=== PATIENT | female | born 1970 | race Caucasian/White ===

== ENCOUNTER → 2018-07-31 15:22 | Outpatient (CLI) | payer MEDICAID, SELFPAY ==
[2018-07-31 17:58] LABS: Absolute Lymphocyte Count 1.97 X10^3/ul (0.83-4.51); Absolute Neutrophil Count 4.5 X10^3/uL (2.0-7.7); Basophil# 0.01 X10^3/uL; Basophil% 0.1 % (0-1); Eosinophils% 1.5 % (0-5); Hematocrit 42.7 % (37-47); Hemoglobin 14.1 g/dl (12.0-15.0); Lymphocyte # 1.97 X10^3/ul (4.0); Lymphocyte % 28.7 % (19-41); Mean Corpuscular Hgb 29.6 pg (27.0-32.0); Mean Corpuscular Volume 89.5 fL (81-99); Mean Platelet Vol. 10.1 fl (6.2-12.0); Monocyte% 4.4 % (0-10); Neutrophil # 4.47 X10^3/uL (2.7-7.7); Platelet Count 294 K/mm3 (150-450); RBC Distribution Width CV 13.9 % (11.6-14.6); Red Blood Count 4.77 M/mm3 (4.2-5.4); White Blood Count 6.9 K/mm3 (4.4-11.0)
[2018-07-31 17:59] LABS: POSITIVE COUNT NO; POSITIVE DIFFERENTIAL NO; POSITIVE MORPHOLOGY NO
[2018-07-31 18:10] LABS: ALB/GLOB Ratio 0.8 RATIO (0.9-2.4); AST(SGOT) 21 U/L (15-37); Alanine Aminotransfer ALT/SGPT 24 U/L (13-56); Albumin, Serum 3.4 g/dL (3.2-5.0); Alkaline Phosphatase 71 U/L (45-117); Anion Gap 9 (5-15); BUN 16 mg/dL (7-18); BUN/Creat Ratio 17.5 RATIO (10-20); Calcium,Total 8.9 mg/dL (8.5-10.1); Chloride 106 mmol/L (98-107); Creatinine, Serum 0.91 mg/dL (0.55-1.02); EST Glomerular Filtration Rate 70 mL/min (>60); Est Glom Filt Rate - Afr Amer 84 mL/min (>60); Ferritin 21 ng/mL (8-252); Globulin 4.2 g/dL (2.2-4.2); Glucose 66 mg/dL (74-106); Potassium 3.7 mmol/L (3.5-5.1); Protein, Total 7.6 g/dL (6.4-8.2); Sodium Level 140 mmol/L (136-145)
[2018-07-31 18:22] LABS: Hemoglobin A1c 5.2 % (4.2-6.3)
--- OUTSIDE RECORDS SUMMARY | 2018-11-04 06:25 | XMS RPT_ITS ---
:1970 Author Organization OHIP Care Team Providers Name Role Phone MANNY KU Referring Unavailable MATY LIMA (RN ENDOCRINOLOGY) Attending Unavailable MANNY KU Referring Unavailable MANNY KU Attending Unavailable MATY LIMA (RN ENDOCRINOLOGY) Referring Unavailable JASPREET CARRIZALES Attending Unavailable Orlando Corrigan Attending Unavailable Orlando Corrigan Referring Unavailable Orlando Corrigan Primary Care Unavailable PROBLEMS PROBLEMS DATE TYPE CONDITION / CODE ATTENDING STATUS SOURCE 09/12/2017 Active Unknown / MATY LIMA Active [facility] UNK(Unknown) (RN ENDOCRINOLOGY) [facility] [place] Repository 09/12/2017 Active Encounter for NA Active [facility] screening [facility] [place] mammogram for Repository malignant neoplasm of breast / Z12.31(ICD-10) PROCEDURES PROCEDURES No Procedure Records FoundRESULTS RESULTS CBC W/DIFF, AUTOMATED Collected: 07/31/2018 Status: F Source: [place] 3:28 PM [facility] REPOSITORY TYPE CODE TESTS RESULT OUT OF RANGE REFERENCE UNITS LAB L100.1000 4.4-11.0 K/mm3 Normal WBC 6.9 LAB L100.1200 4.2-5.4 M/mm3 Normal RBC 4.77 LAB L100.1300 12.0-15.0 g/dl Normal HGB 14.1 LAB L100.1400 37-47 % Normal HCT 42.7 LAB L100.1500 81-99 fL Normal MCV 89.5 LAB L100.1600 27.0-32.0 pg Normal MCH 29.6 LAB L100.1700 32-36 g/gl Normal MCHC 33.0 LAB L100.1810 11.6-14.6 % Normal RDW CV 13.9 LAB L100.1820 35.1-43.9 fl High RDW SD 46.0 LAB L100.1900 150-450 K/mm3 Normal PLT 294 LAB L100.2000 6.2-12.0 fl Normal MPV 10.1 LAB L100.2100 47-70 % Normal NEUT% 65.0 LAB L100.2200 19-41 % Normal LY% 28.7 LAB L100.2300 0-10 % Normal MONO% 4.4 LAB L100.2400 0-5 % Normal EO% 1.5 LAB L100.2500 0-1 % Normal BASO% 0.1 LAB L100.2550 0.0-0.9 % Normal IM GRAN % 0.300 Result Comment: IG% - Immature Granulocytes (promyelocytes, myelocytes and metamyelocytes) > 1% indicates that a LEFT SHIFT is Present. LAB L100.2620 2.0-7.7 X10 3/uL Normal Absolute Neut 4.5 LAB L100.2720 0.83-4.51 X10 3/ul Normal Absolute Lymph 1.97 Performed By: #### L100.0100, L500.4050, L501.9520, L503.6550, L501.9985 #### [facility] [address] [place], [place], [address] COMPREHENSIVE METABOLIC Collected: 07/31/2018 Status: F Source: [facility] 3:28 PM [facility] REPOSITORY TYPE CODE TESTS RESULT OUT OF RANGE REFERENCE UNITS LAB L501.0100 74-106 mg/dL Low GLU 66 Result Comment: Please note revised GLUCOSE reference range effective 2017. LAB L501.1000 7-18 mg/dL Normal BUN 16 LAB L501.1100 0.55-1.02 mg/dL Normal CREAT,SERUM 0.91 Result Comment: The validity of the calculated GFR AND GFRAA in patients over 70 years has not been determined. Clinical correlation is essential. LAB L501.1110 >60 mL/min Normal EST GFR 70 Result Comment: Non- GFR Calc LAB L501.1115 >60 mL/min Normal EST GFR - AA 84 Result Comment: GFR Calc LAB L501.1300 10-20 RATIO Normal BUN/CRE 17.5 LAB L501.1500 6.4-8.2 g/dL T Normal PROT 7.6 LAB L501.1800 3.2-5.0 g/dL Normal ALB 3.4 LAB L501.1950 2.2-4.2 g/dL Normal GLOB 4.2 LAB L501.2000 0.9-2.4 RATIO Low A/G 0.8 LAB L501.2200 8.5-10.1 mg/dL CA Normal 8.9 LAB L501.4100 15-37 U/L Normal AST 21 Result Comment: Slight Hemolysis, Result may be falsely increased. LAB L501.4305 45-117 U/L Normal ALK P 71 LAB L501.4405 13-56 U/L Normal ALT 24 LAB L501.4600 0.20-1.00 mg/dL Normal T BILI 0.30 LAB L501.5300 136-145 mmol/L Normal NA 140 LAB L501.5600 3.5-5.1 mmol/L Normal K 3.7 Result Comment: Slight Hemolysis, Result may be falsely increased. LAB L501.5900 98-107 mmol/L Normal CL 106 LAB L501.6100 21.0-32.0 mmol/L Normal CO2 25.0 LAB L501.6200 5-15 Normal 9 GAP Performed By: #### L100.0100, L500.4050, L501.9520, L503.6550, L501.9985 #### [facility] [address] [place] [address], [address] THYROID STIM HORMONE Collected: 07/31/2018 Status: F Source: [place] (T[facility]) 3:28 PM [facility] REPOSITORY TYPE CODE TESTS RESULT OUT OF RANGE REFERENCE UNITS LAB L501.9520 0.358-3.74 uIU/mL Normal TSH 1.50 Performed By: #### L100.0100, L500.4050, L501.9520, L503.6550, L501.9985 #### [facility] [address] [place], [place], [id number] FERRITIN Collected: 07/31/2018 Status: F Source: [place] 3:28 PM [facility] REPOSITORY TYPE CODE TESTS RESULT OUT OF RANGE REFERENCE UNITS LAB L503.6550 8-252 ng/mL Normal FERRITIN 21 Performed By: #### L100.0100, L500.4050, L501.9520, L503.6550, L501.9985 #### [facility] [address] [place], [address] HEMOGLOBIN A1C Collected: 07/31/2018 Status: F Source: [place] 3:28 PM [facility] REPOSITORY TYPE CODE TESTS RESULT OUT OF RANGE REFERENCE UNITS LAB L501.9985 4.2-6.3 % Normal HGB A1C 5.2 Performed By: #### L100.0100, L500.4050, L501.9520, L503.6550, L501.9985 #### [facility] [address] [facility] [place], [address] SURGICAL PATHOLOGY Observed: 10/31/2017 Status: F Source: [place] 4:18 PM [facility] REPOSITORY Specimen originated from [facility] Specimen #: [id number] Submitting Physician: JASPREET CARRIZALES M.D. ([id number]) FINAL DIAGNOSIS Endometrium, biopsy - Inactive/weakly secretory endometrial glands associated with stromal progestin effect, consistent with oral contraceptive effect. CB/rw 11/07/2017 Malik Gamboa M.D. (Electronic Signature) SPECIMEN SUBMITTED A: ENDOMETRIAL, BIOPSY CLINICAL DATA irreg menstrual bleeding, on OCPs GROSS DESCRIPTION A. Received in formalin are multiple hayes to red-brown, soft feathery segments of tissue admixed with gelatinous material aggregating to 2.5 x 1.5 x 0.3 cm. Totally submitted in one cassette. Gross examination performed at [facility], [address] [place] [address] 11/04/2017 2:38:51 AM Date of Report: 11/07/2017 Date of Procedure: 10/31/2017 Date of Receipt: 11/03/2017 Submitted by: JASPREET CARRIZALES M.D. ([id number]) Location: [facility] Diagnostic interpretation performed at [facility], [address] [place] [address]. PROGRESS Observed: 10/31/2017 Status: COMPLETED Source: [place] 3:42 PM [facility] REPOSITORY HNO ID: [id number] Author: Jaspreet Carrizales Service: (none) Author Type: Physician Type: Progress Notes Filed: 10/31/2017 4:19 PM Note Text: Radha Knight is a 47 year old female who presents today for a colposcopy. Her last pap smear was ASCUS w/ neg hrhpv from 2017, 2016 normal pap w/ +HRHPV from 2015. Patient has a history of abnormal pap: Yes. She has had prior treatment: none. Irreg. spotting on OCPs but not very bothersome. Uses OCPs for contraception test: negative UNIVERSAL PROTOCOL / SAFETY CHECKLIST Procedure to be performed: Colposcopy w/ possible biopsy and Endometrial biopsy Sign in Communication: Completed Time Out: Team Confirms the Correct Patient, Correct Procedure, Correct Site and Site Marking, Correct Position (if applicable), Prep and Dry Time (if applicable). Time: 1608 Affirmation of Time Out: YES Sign Out Discussion: Completed Jaspreet Carrizales MD PROCEDURE: EXTERNAL GENITALIA: Normal in appearance without lesions VAGINA: Normal in appearance without lesions CERVIX: Speculum placed in vagina and excellent visualization of cervix achieved. Cervix swabbed x 3 with 3% acetic acid solution. Cervix grossly normal. Squamocolumnar junction visualized. No acetowhite changes, punctations, mosaicism or atypical vasculature noted. BIOPSY: Not done. ECC: not done EMB done, dilators used. Pipelle placed, sounded to 8 cm. Vigorous pass made with minimal tissue returned HEMOSTASIS: yes Procedure Summary: Patient tolerated procedure well and colposcopy was adequate. ASSESSMENT: Endometrial cells on pap, ASCUS pap, irreg bleeding PLAN: Specimens labeled and sent to Pathology. Will notify patient of results in 1-2 weeks. Post-procedure instructions reviewed and written material given to the patient. No need for ablation, uses OCPS for contraception. Will try nuvaring to see if decreases unscheduled bleeding. DANDC if abnormality on EMB. She agrees w/ plan Jaspreet Carrizales MD HISTORY PHYSICAL Observed: 10/31/2017 Status: COMPLETED Source: [place] 3:03 PM [facility] REPOSITORY HNO ID: [id number] Author: Bisi Perez Ma Service: (none) Author Type: (none) Type: HANDP Filed: 10/31/2017 4:19 PM Note Text: . CNOV Observed: 10/31/2017 Status: COMPLETED Source: [place] 3:00 PM [facility] REPOSITORY Office Visit (WOOB) RADHA KNIGHT ([id number]) 1970 F Date Time Provider Department 10/31/17 3:00 PM JASPREET CARRIZALES During your visit today, we recorded the following information about you: Pulse Respiration Blood pressure Weight 72/minute 12/minute 120/78 112 kg Height Last Period 1.575 m 10/13/17 Bisi Perez Ma 10/31/2017 4:19 PM Signed . Jaspreet Carrizales MD 10/31/2017 4:19 PM Signed Radhadina Knight is a 47 year old female who presents today for a colposcopy. Her last pap smear was ASCUS w/ neg hrhpv from 2018, 2016 normal pap w/ +HRHPV from 2016. Patient has a history of abnormal pap: Yes. She has had prior treatment: none. Irreg. spotting on OCPs but not very bothersome. Uses OCPs for contraception test: negative UNIVERSAL PROTOCOL / SAFETY CHECKLIST Procedure to be performed: Colposcopy w/ possible biopsy and Endometrial biopsy Sign in Communication: Completed Time Out: Team Confirms the Correct Patient, Correct Procedure, Correct Site and Site Marking, Correct Position (if applicable), Prep and Dry Time (if applicable). Time: 1608 Affirmation of Time Out: YES Sign Out Discussion: Completed Jaspreet Carrizales MD PROCEDURE: EXTERNAL GENITALIA: Normal in appearance without lesions VAGINA: Normal in appearance without lesions CERVIX: Speculum placed in vagina and excellent visualization of cervix achieved. Cervix swabbed x 3 with 3% acetic acid solution. Cervix grossly normal. Squamocolumnar junction visualized. No acetowhite changes, punctations, mosaicism or atypical vasculature noted. BIOPSY: Not done. ECC: not done EMB done, dilators used. Pipelle placed, sounded to 8 cm. Vigorous pass made with minimal tissue returned HEMOSTASIS: yes Procedure Summary: Patient tolerated procedure well and colposcopy was adequate. ASSESSMENT: Endometrial cells on pap, ASCUS pap, irreg bleeding PLAN: Specimens labeled and sent to Pathology. Will notify patient of results in 1-2 weeks. Post-procedure instructions reviewed and written material given to the patient. No need for ablation, uses OCPS for contraception. Will try nuvaring to see if decreases unscheduled bleeding. DANDamp;C if abnormality on EMB. She agrees w/ plan MD Bisi Hidalgo [facility] 10/31/2017 3:43 PM Signed YOUR RECOVERY It may take a few weeks for your cervix to heal. While your cervix heals, you may have: - Vaginal bleeding (less than a normal menstrual period) - Mild cramping - A brown-black vaginal discharge (similar to coffee grounds) which is a result of the paste used to help stop bleeding from the procedure Do NOT put anything in the vagina for 1 week after your colposcopy if your doctor does a biopsy of your cervix. This includes sex, tampons, and douches. If you have any discomfort, you may take an over the counter pain medication (motrin, advil, ibuprofen, tylenol, etc). If this does not relieve your discomfort, contact your doctor's office for a prescription strength pain medication. It is okay to wear a sanitary pad until the discharge and spotting stops. RISKS Although problems seldom occur with colposcopy, there can be some complications. You may feel faint during and shortly after the procedure as well as have some bleeding and vaginal discharge after the procedure. There is also a risk of infection after the procedure. These complications are rare and can be easily treated. You should contact you doctor is you have any of the following: - Heavy bleeding (more than your normal period) - Bleeding with clots - Severe abdominal pain - Fever (more than 100.4F) - Foul smelling vaginal discharge RESULTS If a biopsy was taken, we will have the results of your biopsy in 1-2 weeks. If you do not hear the results of your biopsy after 2 weeks, please contact your physicians office for the results. Depending on the biopsy results, your doctor will determine your follow up plan which may include further testing or treatments. STAYING HEALTHY After the procedure, you will need to see your doctor for follow up visits during the year. At these visits your doctor will check the health of your cervix with a pap smear. After three normal pap smears, your doctor will allow you to return to having exams once a year. If you have another abnormal pap smear, you may need closer follow up for longer or you may need additional treatment. By making a few lifestyle changes after the procedure, you can help protect the health of your cervix: - Have regular pelvic exams and pap smears as ordered by your doctor. - Stop smoking as smoking increases your risk of developing a cancer of the cervix - If you have more than one sexual partner, limit your number of partners and use condoms to reduce your risks of STDs. If you have any additional questions, please contact your doctor's office. YOUR RECOVERY After your biopsy you may have: - Vaginal bleeding (less than a normal menstrual period) - Mild cramping Do NOT put anything in the vagina for 1 week after your endometrial biopsy. This includes sex, tampons, and douches. If you have any discomfort, you may take an over the counter pain medication (motrin, advil, ibuprofen, tylenol, etc). If this does not relieve your discomfort, contact your doctor's office for a prescription strength pain medication. It is okay to wear a sanitary pad until the discharge and spotting stops. RISKS Although problems seldom occur with endometrial biopsies, there can be some complications. You may feel faint during and shortly after the procedure as well as have some bleeding after the procedure. There is also a risk of infection after the procedure. These complications are rare and can be easily treated. You should contact you doctor is you have any of the following: - Heavy bleeding (more than your normal period) - Bleeding with clots - Severe abdominal pain - Fever (more than 100.4F) - Foul smelling vaginal discharge RESULTS We will have the results of your biopsy in 1-2 weeks. If you do not hear the results of your biopsy after 2 weeks, please contact your physicians office for the results. If you have any additional questions, please contact your doctor's office. Bisi Perez Ma 10/31/2017 4:42 PM Signed Addended by: BISI PEREZ MA on: 10/31/2017 04:42 PM Modules accepted: Orders Referring Provider: SELF [200] Allergies As of Date: 10/31/2017 (No Known Allergies) Date Reviewed: 10/31/2017 Reviewed by: Jaspreet Carrizales - Fully Assessed Reason for Visit: Pre-Op Visit [1235] Primary Visit Diagnosis:Irregular intermenstrual bleeding [N92.1] Other Visit Diagnoses:Atypical squamous cells of undetermined significance (ASCUS) on Papanicolaou smear of cervix [R87.610] Endometrial cells on cervical Pap smear inconsistent w/LMP [R87.619] Order(s):ENDOMETRIAL BIOPSY [7673680] Order #: [id number] SURGICAL PATHOLOGY [[id number]] Order #: [id number] COLPOSCOPY [[id number]] Order #: [id number] HCG QUAL UR B/O [[id number]] Order #: [id number] Prescriptions as of 10/31/2017 Sig: AMITRIPTYLINE 25 MG TABLET ASHLYNA 0.15 MG-30 MCG (84)/1* MAGNESIUM OXIDE 400 MG TABLET BUPROPION XL 300 MG 24 HR TAB Take 300 mg by mouth once jabari* ETONOGESTREL-ETHINYL ESTRADIO* Use 1 Each vaginally as direc* Medication notes this encounter AMITRIPTYLINE 25 MG TABLET >> Bisi Perez Ma 10/31/2017 3:02 PM >> BISI PEREZ MA FriOct 31, 2017 3:02 PM Received from: External Pharmacy ASHLYNA 0.15 MG-30 MCG (84)/10 MCG(7) TABLETS,3 MONTH DOSE PACK >> Bisi Perez Ma 10/31/2017 3:02 PM >> BISI PEREZ MA FriOct 31, 2017 3:02 PM Received from: External Pharmacy Problem List As Of Date 10/31/2017 Noted Resolved Cholelithiasis [K80.20] INVALID FOR* Other instructions from your clinician: YOUR RECOVERY It may take a few weeks for your cervix to heal. While your cervix heals, you may have: - Vaginal bleeding (less than a normal menstrual period) - Mild cramping - A brown-black vaginal discharge (similar to coffee grounds) which is a result of the paste used to help stop bleeding from the procedure Do NOT put anything in the vagina for 1 week after your colposcopy if your doctor does a biopsy of your cervix. This includes sex, tampons, and douches. If you have any discomfort, you may take an over the counter pain medication (motrin, advil, ibuprofen, tylenol, etc). If this does not relieve your discomfort, contact your doctor's office for a prescription strength pain medication. It is okay to wear a sanitary pad until the discharge and spotting stops. RISKS Although problems seldom occur with colposcopy, there can be some complications. You may feel faint during and shortly after the procedure as well as have some bleeding and vaginal discharge after the procedure. There is also a risk of infection after the procedure. These complications are rare and can be easily treated. You should contact you doctor is you have any of the following: - Heavy bleeding (more than your normal period) - Bleeding with clots - Severe abdominal pain - Fever (more than 100.4F) - Foul smelling vaginal discharge RESULTS If a biopsy was taken, we will have the results of your biopsy in 1-2 weeks. If you do not hear the results of your biopsy after 2 weeks, please contact your physicians office for the results. Depending on the biopsy results, your doctor will determine your follow up plan which may include further testing or treatments. STAYING HEALTHY After the procedure, you will need to see your doctor for follow up visits during the year. At these visits your doctor will check the health of your cervix with a pap smear. After three normal pap smears, your doctor will allow you to return to having exams once a year. If you have another abnormal pap smear, you may need closer follow up for longer or you may need additional treatment. By making a few lifestyle changes after the procedure, you can help protect the health of your cervix: - Have regular pelvic exams and pap smears as ordered by your doctor. - Stop smoking as smoking increases your risk of developing a cancer of the cervix - If you have more than one sexual partner, limit your number of partners and use condoms to reduce your risks of STDs. If you have any additional questions, please contact your doctor's office. YOUR RECOVERY After your biopsy you may have: - Vaginal bleeding (less than a normal menstrual period) - Mild cramping Do NOT put anything in the vagina for 1 week after your endometrial biopsy. This includes sex, tampons, and douches. If you have any discomfort, you may take an over the counter pain medication (motrin, advil, ibuprofen, tylenol, etc). If this does not relieve your discomfort, contact your doctor's office for a prescription strength pain medication. It is okay to wear a sanitary pad until the discharge and spotting stops. RISKS Although problems seldom occur with endometrial biopsies, there can be some complications. You may feel faint during and shortly after the procedure as well as have some bleeding after the procedure. There is also a risk of infection after the procedure. These complications are rare and can be easily treated. You should contact you doctor is you have any of the following: - Heavy bleeding (more than your normal period) - Bleeding with clots - Severe abdominal pain - Fever (more than 100.4F) - Foul smelling vaginal discharge RESULTS We will have the results of your biopsy in 1-2 weeks. If you do not hear the results of your biopsy after 2 weeks, please contact your physicians office for the results. If you have any additional questions, please contact your doctor's office. Encounter Status:Closed by JASPREET CARRIZALES MD on 10/31/17 CNCO Observed: 10/21/2017 Status: COMPLETED Source: [place] 12:00 AM [facility] [place] REPOSITORY Letter Text Jaspreet Carrizales M.D. [facility] [address] [place] [phone] 10/21/2017 Radha Knight [address] [place], [place] [id number] CC#: [id number] Dear Radha, This letter is to confirm with you the dates and times of your upcoming surgery. You should have received a telephone call notifying you of this information. Surgery is scheduled on 11/20/17 at [facility]. Pre-operative appointment at Dr. Carrizales's office is scheduled on 10/31/17 @ 3:00 p.m. [facility] will call you for pre-admission testing on 11/14/17 @ 3:00 p.m. 4 week follow-up appointment at Dr. Carrizales's office is scheduled on 12/19/17 @ 2:50 p.m. In addition, we will do a precertification approximately 1 week prior to your surgery. This means we will give your insurance company the medical information they need to make a predetermination. This is not a guarantee of payment and you will need to call your insurance company to verify benefits and coverage. If you are self-pay and/or receive [facility] Financial Assistance, and are having surgery at [facility], please call them at [phone] to make financial arrangements. We will only call you if there is a problem. If you have any questions, please feel free to call us at the phone number above. We appreciate your confidence in choosing the [facility] for your medical care and we look forward to seeing you at your next appointment. Thank you, [facility] HPV W/GENOTYPE Collected: 09/12/2017 Status: F Source: [place] 3:31 PM [facility] REPOSITORY TYPE CODE TESTS RESULT OUT OF REFERENCE UNITS RANGE LAB HPVT16 HPV HighRisk Negative for Type 16 HPV DNA high risk type 16 by PCR. LAB HPVT18 HPV HighRisk Negative for Type 18 HPV DNA high risk type 18 by PCR. LAB HPVHRO HPV HighRisk Negative for Other HPV DNA high risk types: 31,33,35,39,45 ,51,52,56,58,5 9,66,68 by PCR. Result Comment: This test was developed and its performance characteristics determined by [facility]'s [facility] [place] [facility]). It has not been cleared or approved by the FDA. -[facility] is regulated under CLIA as qualified to perform high-complexity testing. This test is used for clinical purposes. It should not be regarded as inv estigational or for research. Performed By: #### HPVHRR #### [facility] [address] [place], [place] [address] CYTOLOGY Observed: 09/12/2017 Status: C Source: [place] 3:31 PM [facility] REPOSITORY ADDITIONAL PROCEDURES PRESENT ---Abnormal Pap Test - Epithelial Cell Abnormality--- Specimen originated from [facility] Specimen #: [id number] Submitting Physician: MATY LIMA CNP SPECIMEN SUBMITTED A: CERVICAL, DIAGNOSTIC, FLUID FINAL DIAGNOSIS A. CERVICAL, DIAGNOSTIC, FLUID Satisfactory for interpretation. Epithelial cell abnormality. Atypical squamous cells of undetermined significance (ASC-US). Predominance of coccobacilli consistent with shift in vaginal sree. Endometrial cells present (see comment). COMMENT Endometrial cells in women 45 years or older may be associated with benign endometrium, hormonal alterations and less commonly, endometrial or uterine abnormalities. Endometrial evaluation is recommended in postmenopausal women. This specimen has been analyzed by the ThinPrep Imaging System, an automated imaging and review system, which assists the laboratory in evaluating cells on ThinPrep Pap tests. Following automated imaging, selected oliver from every slide are reviewed by a supervisor home economics. Jose D Sarah M.D. (Electronic Signature) ADDITIONAL PROCEDURE(S) HUMAN PAPILLOMA VIRUS Date Ordered: 09/16/2017 Date Reported: 09/17/2017 Procedure Results and Interpretation Negative for HPV DNA high risk type 16 by PCR. Negative for HPV DNA high risk type 18 by PCR. Negative for HPV DNA high risk types: 31,33,35,39,45,51,52,56,58,59,66,68 by PCR. This test was developed and its performance characteristics determined by [facility]'s [facility] [place] ([facility] It has not been cleared or approved by the FDA. [facility] is regulated under CLIA as qualified to perform high-complexity testing. This test is used for clinical purposes. It should not be regarded as investigational or for research. CLINICAL DATA HPV POS, HPV Testing: Yes, automatic HPV patients over 30 Date of Last Menstrual Period: 08/26/2017 STAINS A: CERVICAL, DIAGNOSTIC, FLUID THIN PREP CONTRACT ADMINISTRATION SPECIALIST Date of Report: 09/24/2017 Date of Procedure: 09/12/2017 Date of Receipt: 09/16/2017 Submitted by: MATY LIMA CNP Location: [facility] Diagnostic interpretation performed at [facility], [address] [place] [address]. The Pap Smear is a screening test for cervical cancer. False negative results occur with all screening tests, emphasizing the need for rescreening at recommended intervals, and clinical correlation. CNCO Observed: 09/12/2017 Status: COMPLETED Source: [place] 3:07 PM [facility] REPOSITORY HNO ID: [id number] Author: Mammography Coordinator Service: (none) Author Type: Physician Type: Letter Filed: 09/15/2017 11:34 PM Note Text: September 12, 2017 PID: [id number] Radha Knight [address] [place] [address] Dear Ms. Knight, We are pleased to inform you that the results of your recent breast imaging exam on 09/12/2017 are normal. Early detection of cancer is very important. We also understand recommendations regarding breast cancer screening are controversial. Please discuss with your primary care provider which strategy is best for you and whether a mammogram is right for you. Your imaging studies and report will be kept on file at [facility] as part of your permanent medical record and are available for your continuing care. Thank you for allowing us to help in meeting your health care needs. Sincerely, Dr. Mitchell Interpreting Radiologist [facility] (Normal over 40) PROGRESS Observed: 09/12/2017 Status: COMPLETED Source: [facility] 2:47 PM [facility] REPOSITORY HNO ID: [id number] Author: Maty Lima Service: (none) Author Type: Nurse Practitioner Type: Progress Notes Filed: 09/12/2017 3:32 PM Note Text: Radha Knight is a 46 year old who presents for her annual gynecologic exam without complaints. Menses: cycles every 21-28 days and 4 days of flow. Starts spotting week 3 of pills and then stops and has a period. Would like to discuss other contraceptive options. Contraception: oral contraceptives HPV vaccine: No Last Pap: 2015 normal HPV: positive History of abnormal pap: Yes, 2015 HPV positive Last mammogram: today, pending Sexually active: Yes History of STDS: HPV Patient concerns for STD exposure: No. Time with current partner: 1.5 years Pain with intercourse: No Postcoital bleeding: No Hot flashes: No Night sweats: No Exercise: 3 times a week for 45 minutes. Type: walking Diet: tries to eat balanced diet Seatbelt use: Yes Obstetric History T0 L2 SAB1 TAB0 Ectopic0 Multiple0 Live Births0 PAST MEDICAL HISTORY Diagnosis Date - NEGATIVE MEDICAL HISTORY PAST SURGICAL HISTORY Procedure Laterality Date - DELIVERY ONLY , low cervical - PAST SURGICAL HISTORY OF 1990 cryosurgery FAMILY HISTORY Problem Relation Age of Onset - Diabetes Mother - Cancer Mother fallopian tube with mets to peritoneum - Cancer Father cancer lung - Breast Cancer Maternal Grandmother - Coronary Artery Disease Paternal Grandfather SOCIAL HISTORY Social History Substance Use Topics - Smoking status: Never Smoker - Smokeless tobacco: Never Used - Alcohol use Yes Comment: Occasionally REVIEW OF SYSTEMS Abdomen: No abdominal pain, nausea, vomiting, diarrhea, or constipation. No bloating, early satiety, indigestion, or increased flatulence. Bladder: No dysuria, gross hematuria, urinary frequency, urinary urgency, or incontinence. Breast: No breast lumps, nipple d/c, overlying skin changes, redness or skin retraction. Allergies and current medication updated:Yes EXAM: BP 112/72 Ht 5' 2.205 (1.58m) Wt 243 lb (110.2kg) LMP 08/26/2017 BMI 44.15 kg/(m2). GENERAL: pleasant, female in no apparent distress HEENT: Normocephalic, atraumatic, mucus membranes moist and no lesions NECK: Supple, full range of motion, no adenopathy and thyroid normal DERMATOLOGY: Normal, without lesions, non-icteric and non-hirsute BREAST: soft, non-tender, symmetric, no dominant mass, normal nipple-areolar complex, no lymphadenopathy and no nipple discharge CHEST: Normal inspiratory effort ABDOMEN: soft, non-tender and no masses PELVIC: external genitalia normal, normal Bartholin's glands, urethra, Moreland's glands, no vulvar lesions, no cervical lesions, good vaginal support, physiologic discharge present, normal appearing perineal body and perianal region BIMANUAL: uterus normal size, shape and consistency, no adnexal masses and non-tender RECTOVAGINAL: deferred. NEURO: alert and oriented x3,exam grossly non-focal EXTREMITIES: normal ASSESSMENT/PLAN: 1) Health maintenance: Pap done with HPV. Mammogram up to date . Nutrition, exercise and routine health maintenance exams reviewed. Calcium/Vitamin D supplementation information provided. 2) Contraception: Nuva Ring. Contraceptive options reviewed and information provided. 3) STD screening: Declined STD check. 4. General counseling and advice for contraceptive management - ICD9: V25.09, ICD10: Z30.09 Discussed options with R/B/A.. Mirena attempted twice without success at insertion. Will try Nuva Ring. Given verbal and written information. 5. Follow up one year or sooner as needed MATY LIMA CNP CNOV Observed: 09/12/2017 Status: COMPLETED Source: [place] 2:45 PM [facility] REPOSITORY Office Visit (WOOB) RADHA KNIGHT ([id number]) 1970 F Date Time Provider Department 09/12/17 2:45 PM MATY LIMA (GLEN) WOOB During your visit today, we recorded the following information about you: Blood pressure Weight Height Last Period 112/72 110.2 kg 1.58 m 08/26/17 MATY LIMA CNP 09/12/2017 3:32 PM Signed Radha Knight is a 46 year old who presents for her annual gynecologic exam without complaints. Menses: cycles every 21-28 days and 4 days of flow. Starts spotting week 3 of pills and then stops and has a period. Would like to discuss other contraceptive options. Contraception: oral contraceptives HPV vaccine: No Last Pap: 2016 normal HPV: positive History of abnormal pap: Yes, 2015 HPV positive Last mammogram: today, pending Sexually active: Yes History of STDS: HPV Patient concerns for STD exposure: No. Time with current partner: 1.5 years Pain with intercourse: No Postcoital bleeding: No Hot flashes: No Night sweats: No Exercise: 3 times a week for 45 minutes. Type: walking Diet: tries to eat balanced diet Seatbelt use: Yes Obstetric History T0 L2 SAB1 TAB0 Ectopic0 Multiple0 Live Births0 PAST MEDICAL HISTORY Diagnosis Date - NEGATIVE MEDICAL HISTORY PAST SURGICAL HISTORY Procedure Laterality Date - DELIVERY ONLY , low cervical - PAST SURGICAL HISTORY OF 1990 cryosurgery FAMILY HISTORY Problem Relation Age of Onset - Diabetes Mother - Cancer Mother fallopian tube with mets to peritoneum - Cancer Father cancer lung - Breast Cancer Maternal Grandmother - Coronary Artery Disease Paternal Grandfather SOCIAL HISTORY Social History Substance Use Topics - Smoking status: Never Smoker - Smokeless tobacco: Never Used - Alcohol use Yes Comment: Occasionally REVIEW OF SYSTEMS Abdomen: No abdominal pain, nausea, vomiting, diarrhea, or constipation. No bloating, early satiety, indigestion, or increased flatulence. Bladder: No dysuria, gross hematuria, urinary frequency, urinary urgency, or incontinence. Breast: No breast lumps, nipple d/c, overlying skin changes, redness or skin retraction. Allergies and current medication updated:Yes EXAM: BP 112/72 Ht 5' 2.205ANDquot; (1.58m) Wt 243 lb (110.2kg) LMP 08/26/2017 BMI 44.15 kg/(m2). GENERAL: pleasant, female in no apparent distress HEENT: Normocephalic, atraumatic, mucus membranes moist and no lesions NECK: Supple, full range of motion, no adenopathy and thyroid normal DERMATOLOGY: Normal, without lesions, non-icteric and non-hirsute BREAST: soft, non-tender, symmetric, no dominant mass, normal nipple-areolar complex, no lymphadenopathy and no nipple discharge CHEST: Normal inspiratory effort ABDOMEN: soft, non-tender and no masses PELVIC: external genitalia normal, normal Bartholin's glands, urethra, Moreland's glands, no vulvar lesions, no cervical lesions, good vaginal support, physiologic discharge present, normal appearing perineal body and perianal region BIMANUAL: uterus normal size, shape and consistency, no adnexal masses and non-tender RECTOVAGINAL: deferred. NEURO: alert and oriented x3,exam grossly non-focal EXTREMITIES: normal ASSESSMENT/PLAN: 1) Health maintenance: Pap done with HPV. Mammogram up to date . Nutrition, exercise and routine health maintenance exams reviewed. Calcium/Vitamin D supplementation information provided. 2) Contraception: Nuva Ring. Contraceptive options reviewed and information provided. 3) STD screening: Declined STD check. 4. General counseling and advice for contraceptive management - ICD9: V25.09, ICD10: Z30.09 Discussed options with R/B/A.. Mirena attempted twice without success at insertion. Will try Nuva Ring. Given verbal and written information. 5. Follow up one year or sooner as needed GLEN GREENE CNP 09/12/2017 3:19 PM Signed Calcium and Vitamin D Supplementation (from the National Institutes of Health Office of Dietary Supplements 2010) Calcium is required by the body for blood vessel, muscle, hormone and nerve functioning. Most of the body's calcium is stored in the bones and teeth where it supports structure and function. Bone is continuously broken down and reformed. When bone breakdown exceeds formation, especially in postmenopausal women, bone loss can increase the risk of osteoporosis and fractures. In addition to low calcium intake, women who smoke, have a family history of osteoporosis, are thin, or , or who take certain medications such as cancer chemotherapy, seizure mediations and steroids are at increased risk of osteoporosis. The calcium requirements in women change with age. The National Institutes of Health (NIH) recommends: 1000mg elemental calcium for premenopausal women age 19-50 1200mg elemental calcium for postmenopausal women and all women over 50 Milk, yogurt, and cheese are rich natural sources of calcium and are the major food contributors in the [place]. For example, 8oz of milk (whole, lowfat or skim) contains about 300mg calcium, 8oz of yogurt contains 415mg. Nondairy sources include salmon and sardines and vegetables, such as [place]cu[place]orean cabbage, kale, and broccoli. Foods fortified with calcium include many fruit juices, tofu and cereals. For more food calcium content information, visit http://ods.od.nih.gov/factsheets/calcium. Calcium supplements come in several different forms. Remember that the recommendations are for millgrams (mg) of elemental calcium which may be less than the total weight of the supplement. The amount of elemental calcium is required to be printed on the label. Calcium carbonate is the least expensive form. It must be taken on a full stomach to be properly absorbed. Some patients may experience gas or constipation. Calcium phosphate and calcium citrate may be taken either with or without food and tend to have less side effects but are generally more expensive. Because of its ability to neutralize stomach acid, calcium carbonate is found in some fxao-ppc-tqhchzh antacid products, such as Tums? and Rolaids?. Depending on its strength, each chewable pill or softchew provides 200 to 400 mg of elemental calcium. The percentage of calcium absorbed depends on the total amount of elemental calcium consumed at one time. Absorption is highest in doses ANDlt;500mg. So a woman who takes 1,000mg/day of calcium from supplements should split the dose and take 500mg at two separate times during the day. Too much calcium can cause kidney stones, constipation, difficulty absorbing other nutrients and calcium buildup in blood vessels. Women under 50 should not exceed 2500mg/day (2000mg/day for women over 50) of calcium from food and supplements. Excessive alcohol and caffeine intake can inhibit absorption of calcium. Calcium can reduce the absorption of some medications if taken at the same time of day (bisphosphonates, thyroid medication, Phenytoin and other seizure medications, some antibiotics and iron supplements). Vitamin D promotes calcium absorption in the gut and maintains adequate blood levels of calcium and phosphate for normal bone growth and bone remodeling. Vitamin D also helps regulate cell growth as well as nerve, muscle and immune system function. Vitamin D is produced in the skin as a result of ultraviolet sunlight rays and must be altered in the liver and kidney to become its active form. Recommended intake according to the National Institutes of Health is 600 International Units (IU) for girls and women ages 1-70 and 800 IU for women over 70. Very few foods in nature contain vitamin D. The flesh of fatty fish (such as salmon, tuna, and mackerel) and fish liver oils are among the best sources. Small amounts of vitamin D are found in beef liver, cheese, mushrooms and egg yolks. Most people meet at least some of their vitamin D needs through exposure to sunlight. Season, time of day, length of day, cloud cover, smog, skin melanin content, and sunscreen are among the factors that affect UV radiation exposure and vitamin D synthesis. Despite the importance of the sun for vitamin D synthesis, it is prudent to limit exposure of skin to sunlight and avoid tanning beds. UV radiation is a carcinogen responsible for most of the estimated 1.5 million skin cancers that occur annually in the [place]. Lifetime cumulative UV damage to skin is also responsible for some age-associated dryness and other cosmetic changes. In supplements and fortified foods, vitamin D is available in two forms, D2 (ergocalciferol) and D3 (cholecalciferol). The two are equivalent at normal supplement doses. For women who require high supplement doses because of vitamin D deficiency, D3 may work better to raise blood levels. Some medications can prevent proper absorption of Vitamin D. These include laxatives, corticosteroids like prednisone, the seizure drugs phenobarbital and phenytoin, the weight-loss drug orlistat ( Xenical? and AlliTM) and the cholesterol-lowering drug cholestyramine (Questran?, LoCholest?, and Prevalite?). Talk to your doctor about adjusting your recommended daily vitamin D dosage if you take these medications. You should not exceed 4000 mg of vitamin D supplementation daily unless specifically prescribed by your doctor. Referring Provider: MANNY KU [[id number]] Allergies As of Date: 09/12/2017 (No Known Allergies) Date Reviewed: 09/12/2017 Reviewed by: Maty Lima - Fully Assessed Reason for Visit: Yearly Exam [187] Primary Visit Diagnosis:Encounter for gynecological examination (general) (routine) without abnormal findings [Z01.419] Other Visit Diagnoses:Visit for screening mammogram [Z12.31] General counseling and advice for contraceptive management [Z30.09] Encounter for Papanicolaou smear for cervical cancer screening [Z12.4] Special screening examination for human papillomavirus (HPV) [Z11.51] Order(s):NALLELY SCREENING [[id number]] Order #: [id number] FUTURE Etonogestrel-Ethinyl Estradiol (NUVARING) 0.12-0.015 mg/24 hr vaginal ringUse 1 Each vaginally as directed. INSERT ONE(1) RING VAGINALLY AND LEAVE IN PLACE FOR THREE WEEKS, THEN REMOVE FOR 1 WEEK.Disp: 3 EachRfl: 4 PAP FLUID CERVICAL DIAGNOSTIC [[id number]] Order #: [id number] Prescriptions as of 09/12/2017 Sig: BUPROPION XL 300 MG 24 HR TAB Take 300 mg by mouth once jabari* MAGNESIUM OXIDE 400 MG TABLET ETONOGESTREL-ETHINYL ESTRADIO* Use 1 Each vaginally as direc* Medication notes this encounter MAGNESIUM OXIDE 400 MG TABLET >> MATY LIMA CNP 09/12/2017 3:02 PM >> MATY LIMA Sep 12, 2017 3:02 PM Received from: External Pharmacy Problem List As Of Date 09/12/2017 Noted Resolved Cholelithiasis [K80.20] INVALID FOR* Other instructions from your clinician: Calcium and Vitamin D Supplementation (from the National Institutes of Health Office of Dietary Supplements 2010) Calcium is required by the body for blood vessel, muscle, hormone and nerve functioning. Most of the body's calcium is stored in the bones and teeth where it supports structure and function. Bone is continuously broken down and reformed. When bone breakdown exceeds formation, especially in postmenopausal women, bone loss can increase the risk of osteoporosis and fractures. In addition to low calcium intake, women who smoke, have a family history of osteoporosis, are thin, or , or who take certain medications such as cancer chemotherapy, seizure mediations and steroids are at increased risk of osteoporosis. The calcium requirements in women change with age. The National Institutes of Health (NIH) recommends: 1000mg elemental calcium for premenopausal women age 19-50 1200mg elemental calcium for postmenopausal women and all women over 50 Milk, yogurt, and cheese are rich natural sources of calcium and are the major food contributors in the [place]. For example, 8oz of milk (whole, lowfat or skim) contains about 300mg calcium, 8oz of yogurt contains 415mg. Nondairy sources include salmon and sardines and vegetables, such as [place]cuadorean cabbage, kale, and broccoli. Foods fortified with calcium include many fruit juices, tofu and cereals. For more food calcium content information, visit http://ods.od.nih.gov/factsheets/calcium. Calcium supplements come in several different forms. Remember that the recommendations are for millgrams (mg) of elemental calcium which may be less than the total weight of the supplement. The amount of elemental calcium is required to be printed on the label. Calcium carbonate is the least expensive form. It must be taken on a full stomach to be properly absorbed. Some patients may experience gas or constipation. Calcium phosphate and calcium citrate may be taken either with or without food and tend to have less side effects but are generally more expensive. Because of its ability to neutralize stomach acid, calcium carbonate is found in some szff-pbd-dmapath antacid products, such as Tums? and Rolaids?. Depending on its strength, each chewable pill or softchew provides 200 to 400 mg of elemental calcium. The percentage of calcium absorbed depends on the total amount of elemental calcium consumed at one time. Absorption is highest in doses <500mg. So a woman who takes 1,000mg/day of calcium from supplements should split the dose and take 500mg at two separate times during the day. Too much calcium can cause kidney stones, constipation, difficulty absorbing other nutrients and calcium buildup in blood vessels. Women under 50 should not exceed 2500mg/day (2000mg/day for women over 50) of calcium from food and supplements. Excessive alcohol and caffeine intake can inhibit absorption of calcium. Calcium can reduce the absorption of some medications if taken at the same time of day (bisphosphonates, thyroid medication, Phenytoin and other seizure medications, some antibiotics and iron supplements). Vitamin D promotes calcium absorption in the gut and maintains adequate blood levels of calcium and phosphate for normal bone growth and bone remodeling. Vitamin D also helps regulate cell growth as well as nerve, muscle and immune system function. Vitamin D is produced in the skin as a result of ultraviolet sunlight rays and must be altered in the liver and kidney to become its active form. Recommended intake according to the National Institutes of Health is 600 International Units (IU) for girls and women ages 1-70 and 800 IU for women over 70. Very few foods in nature contain vitamin D. The flesh of fatty fish (such as salmon, tuna, and mackerel) and fish liver oils are among the best sources. Small amounts of vitamin D are found in beef liver, cheese, mushrooms and egg yolks. Most people meet at least some of their vitamin D needs through exposure to sunlight. Season, time of day, length of day, cloud cover, smog, skin melanin content, and sunscreen are among the factors that affect UV radiation exposure and vitamin D synthesis. Despite the importance of the sun for vitamin D synthesis, it is prudent to limit exposure of skin to sunlight and avoid tanning beds. UV radiation is a carcinogen responsible for most of the estimated 1.5 million skin cancers that occur annually in the [place]. Lifetime cumulative UV damage to skin is also responsible for some age-associated dryness and other cosmetic changes. In supplements and fortified foods, vitamin D is available in two forms, D2 (ergocalciferol) and D3 (cholecalciferol). The two are equivalent at normal supplement doses. For women who require high supplement doses because of vitamin D deficiency, D3 may work better to raise blood levels. Some medications can prevent proper absorption of Vitamin D. These include laxatives, corticosteroids like prednisone, the seizure drugs phenobarbital and phenytoin, the weight-loss drug orlistat ( Xenical? and AlliTM) and the cholesterol-lowering drug cholestyramine (Questran?, LoCholest?, and Prevalite?). Talk to your doctor about adjusting your recommended daily vitamin D dosage if you take these medications. You should not exceed 4000 mg of vitamin D supplementation daily unless specifically prescribed by your doctor. Prescriptions ordered this encounter Disp Refills Start End ETONOGESTREL-ETHINYL ESTRADIOL 0.12 * 3 Ea* 4 09/12/2017 Route: VAGINAL Sig: Use 1 Each vaginally as directed. INSERT ONE(1) RING VAGINALLY AND LEAVE IN PLACE FOR THREE WEEKS, THEN REMOVE FOR 1 WEEK. Medications Discontinued During This Encounter ASHLYNA 0.15 mg-30 mcg (84)/10 mcg (* 1 Pa* 3 06/23/2017 09/12/2017 Sig: take 1 tablet by mouth once daily Disc: Reason for discontinue is not on file. Disposition: Return in 1 year (on 09/12/2018) for Annual Exam. Follow-up and Disposition History Recorded Encounter Status:Closed by MATY LIMA on 09/12/17 NALLELY SCREENING Observed: 09/12/2017 Status: F Source: [place] 2:40 PM [facility] REPOSITORY * * *Final Report* * * DATE OF EXAM: Sep 12 2017 2:40PM [facility] [id number] - NALLELY SCREENING / PROCEDURE REASON: Encounter for screening mammogram for malignant neoplasm of breast * * * * Physician Interpretation * * * * RESULT: #[id number] - NALLELY SCREENING BILATERAL DIGITAL SCREENING MAMMOGRAM WITH CAD: 09/12/2017 HISTORY: Encounter For Screening Mammogram For Malignant Neoplasm Of Breast\ Screening Mammogram - patient reports NO breast symptoms /priors available for comparison. RESULT: TECHNIQUE: The study was acquired using full field digital technology and interpreted from soft copy. Current study was also evaluated with a Computer Aided Detection (CAD). Comparison is made to exams dated: 06/12/2016 mammogram, 10/31/2014 mammogram, 10/23/2012 mammogram, 10/25/2013 mammogram - [facility], and 09/17/2010 mammogram. There are scattered fibroglandular elements in both breasts. The parenchymal pattern and appearance of the breasts is unchanged from the prior exams given differences in positioning and technique. No significant masses, calcifications, or other findings are seen in either breast. There has been no significant interval change. IMPRESSION: NEGATIVE There is no mammographic evidence of malignancy.A 1 year screening mammogram is recommended. Ludivina hunter/nick:09/12/2017 15:07:31 Sash Sticker: Nicole ELLISON (R)(Akshat), [facility] letter sent: Normal over 40 Mammogram BI-RADS: 1 Negative Corporate Responsibility Officer: Nick Transcribe Date/Time: Sep 12 2017 2:41P Dictated by: ULDIVINA MITCHELL MD This examination was interpreted and the report reviewed and electronically signed by: LUDIVINA MITCHELL MD on Sep 12 2017 3:07PM EST [id number] ALLERGIES ALLERGIES DATE TYPE / CODE NAME / CODE REACTION SEVERITY SOURCE Drug NO KNOWN [facility] Class/53709 ALLERGIES [facility] 1003(SNOMED Repository CT) ENCOUNTERS ENCOUNTERS ADMIT/DISCHARGE ACCOUNT ADMITTING ENCOUNTER LOCATION SOURCE NUMBER CLASS 07/31/2018 [id number] Ambulatory [facility] ing:MTLAB Repository 10/31/2017/11/05/19 [id number] Ambulatory [address] Repository 10/03/2017/10/07/19 [id number] Ambulatory [address] Repository 09/12/2017/09/16/19 [id number] Ambulatory [address] Repository 09/12/2017/09/12/19 [id number] Ambulatory [address] Repository PAYERS PAYERS ENCOUNTER GUARANTOR PAYER SUBSCRIBER SOURCE 07/31/2018 RADHA S Primary RADHA S Clif [id number] Insurance:CAREBRANDEE ZALDIVARB: [facility] Number: [id number] [id number]: [phone] [id number] Repository [phone] () Date:2018-07-31[address]ATTN: [place] [address]LF: 07/31/2018 Secondary NOT GIVENUNK Clif Insurance:SELF PAY [facility] Number: Effective Repository Date:2018-07-31
== END ==
PROVIDERS: Family Provider Family Medicine; PCP Family Medicine; Referring Provider Family Medicine; Visit Provider Family Medicine
DX: N94.6 Dysmenorrhea, unspecified (principal); G56.00 Carpal tunnel syndrome, unspecified upper limb
CPT/HCPCS: 36415; 80053; 82728; 83036; 84443; 85025

== ENCOUNTER → 2018-12-16 | Outpatient (CLI) | payer MEDICAID, SELFPAY ==
--- NOTE | 2018-12-16 16:30 | VDLE_ITS ---
Reason For Study: LLE lymphedema, swelling, warmth, tenderness. RIGHT LEFT CFV is compressible, spontaneous, phasic, GSV is normal. competent and demonstrates normal CFV is compressible, spontaneous, phasic, augmentation. competent, and demonstrates normal Procedure augmentation. Exam performed in department. FV is compressible, spontaneous, phasic, The exam was diagnostic. competent and demonstrates normal The study was technically limited. augmentation. A preliminary report was called and/or faxed POP V is compressible, spontaneous, phasic, to Dr. Shane Miller @ [phone] @ 4:50 pm. competent and demonstrates normal augmentation. T/P Trunk is compressible. PTV is compressible. LT PerV is compressible. Interpretation Summary Deep veins of the left lower extremity are patent and compressible segmentally. There is no evidence of left lower extremity deep vein thrombosis. Valvular competence appears intact within the proximal deep venous system on the left . The left greater saphenous vein appears patent and compressible segmentally. Ordering Physician: LIZ Troncoso Referring Physician: LIZ Troncoso Performed By: Rylie Zhang, YVONNE, RVT
== END | disposition home or self-care (01) ==
PROVIDERS: Family Provider Family Medicine; PCP Family Medicine; Referring Provider Nurse Practitioner Family; Visit Provider Nurse Practitioner Family
DX: R22.42 Localized swelling, mass and lump, left lower limb (principal)
CPT/HCPCS: 93971

== ENCOUNTER → 2019-02-11 | Outpatient (CLI) | payer MEDICAID, SELFPAY ==
--- NOTE | 2019-02-11 14:46 | US_ITS ---
STUDY: SUPERFICIAL ULTRASOUND - LEFT CALF. REASON FOR EXAM: Female, 48 years old. LT LOWER LEG LUMP TECHNIQUE: A superficial ultrasound was performed with real-time and static clark-scale imaging. COMPARISON: None. FINDINGS: No definite focal abnormality. No gross mass. No focal fluid collection. Probable nonspecific edema. Several focal varices incidentally noted. US/Ext Non Vasc Limited/Soft Tiss IMPRESSION: No definite focal abnormality seen. Electronically Signed: Darryl Knight MD at 16:20 EDT , Service support ,
== END | disposition home or self-care (01) ==
LOC: US 14:43
PROVIDERS: Family Provider Family Medicine; PCP Family Medicine; Referring Provider Family Medicine; Visit Provider Family Medicine
DX: R22.42 Localized swelling, mass and lump, left lower limb (principal)
CPT/HCPCS: 76882

== ENCOUNTER → 2020-01-03 | Outpatient (CLI) | payer MEDICAID, SELFPAY ==
[2020-01-04 16:45] LABS: HPV Reflexed? NOT INDICATED
== END | disposition home or self-care (01) ==
LOC: LABSPEC 13:43
PROVIDERS: PCP Family Medicine; Referring Provider Nurse Practitioner Adult Health; Visit Provider Nurse Practitioner Adult Health
DX: Z01.419 Encounter for gynecological examination (general) (routine) without abnormal findings (principal)
CPT/HCPCS: 88175; G0145

== ENCOUNTER → 2020-01-12 13:19 | Outpatient (CLI) | payer MEDICAID, SELFPAY ==
--- NOTE | 2020-01-12 13:23 | BI_ITS ---
MAMMOGRAPHY - BILATERAL SCREENING REASON FOR EXAM: Female, 49 years old. Routine annual screening examination. PERTINENT HISTORY: Grandmother with breast cancer. TECHNIQUE: Digital bilateral breast kely (3D mammographic acquisition) in the CC and MLO projections. 2-D mediolateral oblique (MLO) and craniocaudad (CC) views of both breasts were obtained. CAD: Full Field Digital Mammography with Computer Added Detection was performed. COMPARISON: None. Baseline examination. FINDINGS: Breast Composition: There are scattered areas of fibroglandular density. There are no dominant masses or suspicious calcifications. No other significant abnormalities are identified. BI/SCREEN MAMM (CAD) W/KELY BILAT IMPRESSION: Negative screening mammogram. Yearly followup mammogram recommended. (A) ASSESSMENT CATEGORY: BIRADS Category 1: Negative. A letter regarding these results will be sent to the patient by the facility within 30 days. Approximately 10% of breast cancers are not detected by mammography. A normal mammogram should not delay biopsy of a clinically suspicious abnormality. [id number] Electronically Signed: Ismael Granger, at 14:48 EDT , Service support ,
== END ==
PROVIDERS: PCP Family Medicine; Referring Provider Nurse Practitioner Adult Health; Visit Provider Nurse Practitioner Adult Health
DX: Z12.31 Encounter for screening mammogram for malignant neoplasm of breast (principal); Z80.3 Family history of malignant neoplasm of breast
CPT/HCPCS: 77063; 77067

== ENCOUNTER → 2021-01-26 13:50 | Outpatient (CLI) | payer OTHER, SELFPAY ==
--- NOTE | 2021-01-26 13:51 | BI_ITS ---
MAMMOGRAPHY - BILATERAL SCREENING REASON FOR EXAM: Female, 50 years old. Routine annual screening examination. PERTINENT HISTORY: Grandmother with breast cancer. TECHNIQUE: Digital bilateral breast kely (3D mammographic acquisition) in the CC and MLO projections. 2-D mediolateral oblique (MLO) and craniocaudad (CC) views of both breasts were obtained. CAD: Full Field Digital Mammography with Computer Added Detection was performed. COMPARISON: Comparison is made with prior study dated 01/12/2020. FINDINGS: Breast Composition: There are scattered areas of fibroglandular density. There are no dominant masses or suspicious calcifications. Stable benign appearing bilateral axillary lymph nodes. No other significant abnormalities are identified. There has been no significant change since the prior study. BI/SCRN MAMM (CAD)W/KELY BILAT IMPRESSION: Stable bilateral screening mammogram. Yearly follow-up mammogram recommended. (A) ASSESSMENT CATEGORY: BIRADS Category 2: Benign. A letter regarding these results will be sent to the patient by the facility within 30 days. Approximately 10% of breast cancers are not detected by mammography. A normal mammogram should not delay biopsy of a clinically suspicious abnormality. [id number] Electronically Signed: Ismael Granger MD at 15:02 EDT , Service support ,
== END ==
PROVIDERS: PCP Family Medicine; Referring Provider Family Medicine; Visit Provider Family Medicine
DX: Z12.31 Encounter for screening mammogram for malignant neoplasm of breast (principal)
CPT/HCPCS: 77063; 77067

== ENCOUNTER → 2021-03-20 07:33 | Outpatient (CLI) | payer OTHER, SELFPAY ==
[2021-03-20 10:57] LABS: Cholesterol 165 mg/dL (200); Creatinine, Serum 0.82 mg/dL (0.55-1.02); EST Glomerular Filtration Rate 78 mL/min (>60); Est Glom Filt Rate - Afr Amer 94 mL/min (>60); Glucose 88 mg/dL (74-106); High Density Lipoprotein 58 mg/dL; Potassium 3.5 mmol/L (3.5-5.1); Sodium Level 139 mmol/L (136-145)
== END ==
PROVIDERS: PCP Family Medicine; Referring Provider Family Medicine; Visit Provider Family Medicine
DX: I89.0 Lymphedema, not elsewhere classified (principal); E66.01 Morbid (severe) obesity due to excess calories
CPT/HCPCS: 36415; 82465; 82565; 82947; 83718; 84132; 84295

== ENCOUNTER 2021-11-06 07:48 | Outpatient (CLI) | payer OTHER, SELFPAY ==
[2021-11-06 10:00] LABS: ALB/GLOB Ratio 0.8 RATIO (0.9-2.4); AST(SGOT) 13 U/L (15-37); Alanine Aminotransfer ALT/SGPT 21 U/L (13-56); Albumin, Serum 3.3 g/dL (3.2-5.0); Alkaline Phosphatase 67 U/L (45-117); Anion Gap 4 (5-15); BUN 17 mg/dL (7-18); BUN/Creat Ratio 18.8 RATIO (10-20); Calcium,Total 8.8 mg/dL (8.5-10.1); Chloride 103 mmol/L (98-107); Cholesterol 175 mg/dL (200); EST Glomerular Filtration Rate 70 mL/min (>60); Est Glom Filt Rate - Afr Amer 84 mL/min (>60); Globulin 4.2 g/dL (2.2-4.2); Glucose 89 mg/dL (74-106); High Density Lipoprotein 63 mg/dL; Potassium 3.4 mmol/L (3.5-5.1); Protein, Total 7.5 g/dL (6.4-8.2); Sodium Level 137 mmol/L (136-145); Triglycerides 129 mg/dL; Very Low Density Lipoprotein 26 mg/dL (5-40)
[2021-11-06 10:01] LABS: Hemoglobin A1c 5.2 % (3.8-5.6)
== END 2021-11-06 23:59 | disposition home or self-care (01) ==
PROVIDERS: PCP Family Medicine; Referring Provider Family Medicine; Visit Provider Family Medicine
DX: Z00.00 Encounter for general adult medical examination without abnormal findings (principal)
CPT/HCPCS: 36415; 80053; 80061; 83036

== ENCOUNTER → 2022-04-12 | Outpatient (CLI) | payer OTHER, SELFPAY ==
--- NOTE | 2022-04-12 08:39 | BI_ITS ---
MAMMOGRAPHY - BILATERAL SCREENING REASON FOR EXAM: Female, 51 years old. Routine annual screening examination. PERTINENT HISTORY: Grandmother with breast cancer. TECHNIQUE: Digital bilateral breast kely (3D mammographic acquisition) in the CC and MLO projections. 2-D mediolateral oblique (MLO) and craniocaudad (CC) views of both breasts were obtained. CAD: Full Field Digital Mammography with Computer Added Detection was performed. COMPARISON: Comparison is made with prior study dated 01/26/2021 and 01/12/2020. FINDINGS: Breast Composition: There are scattered areas of fibroglandular density. There are no dominant masses or suspicious calcifications. Stable small benign-appearing bilateral axillary lymph nodes. No other significant abnormalities are identified. There has been no significant change since the prior study. BI/SCRN MAMM (CAD)W/KELY BILAT IMPRESSION: Stable bilateral screening mammogram. Yearly follow-up mammogram recommended. (A) ASSESSMENT CATEGORY: BIRADS Category 2: Benign. A letter regarding these results will be sent to the patient by the facility within 30 days. Approximately 10% of breast cancers are not detected by mammography. A normal mammogram should not delay biopsy of a clinically suspicious abnormality. [id number] Electronically Signed: Ismael Granger MD at 9:49 EDT ,
== END | disposition home or self-care (01) ==
PROVIDERS: PCP Family Medicine; Visit Provider Family Medicine
DX: Z12.31 Encounter for screening mammogram for malignant neoplasm of breast (principal)
CPT/HCPCS: 77063; 77067

== ENCOUNTER → 2022-08-05 | Outpatient (CLI) | payer OTHER, SELFPAY ==
[2022-08-05 10:14] LABS: Hemoglobin A1c 5.3 % (3.8-5.6)
[2022-08-05 10:16] LABS: ALB/GLOB Ratio 0.8 RATIO (0.9-2.4); AST(SGOT) 11 U/L (15-37); Alanine Aminotransfer ALT/SGPT 23 U/L (13-56); Albumin, Serum 3.3 g/dL (3.2-5.0); Alkaline Phosphatase 67 U/L (45-117); Anion Gap 8 (5-15); BUN 16 mg/dL (7-18); Calcium,Total 10.1 mg/dL (8.5-10.1); Chloride 105 mmol/L (98-107); EST Glomerular Filtration Rate 62 mL/min (>60); Est Glom Filt Rate - Afr Amer 75 mL/min (>60); Globulin 4.1 g/dL (2.2-4.2); Glucose 88 mg/dL (74-106); Potassium 3.9 mmol/L (3.5-5.1); Protein, Total 7.4 g/dL (6.4-8.2); Sodium Level 139 mmol/L (136-145)
== END | disposition home or self-care (01) ==
LOC: MFPLAB 08:43
PROVIDERS: PCP Family Medicine; Visit Provider Family Medicine
DX: E66.01 Morbid (severe) obesity due to excess calories (principal)
CPT/HCPCS: 36415; 80053; 83036

== ENCOUNTER → 2023-05-30 | Outpatient (CLI) | payer OTHER, SELFPAY ==
--- NOTE | 2023-05-30 08:00 | BI_ITS ---
MAMMOGRAPHY - BILATERAL SCREENING REASON FOR EXAM: Female, 52 years old. Routine annual screening examination. PERTINENT HISTORY: Grandmother with breast cancer. TECHNIQUE: Digital bilateral breast blaire (3D mammographic acquisition) in the CC and MLO projections. 2-D mediolateral oblique (MLO) and craniocaudad (CC) views of both breasts were obtained. CAD: Full Field Digital Mammography with Computer Added Detection was performed. COMPARISON: Comparison is made with prior study dated April 12, 2022 and January 26, 2021. FINDINGS: Breast Composition: The breasts are almost entirely fatty. There are no dominant masses or suspicious calcifications. Small benign appearing bilateral axillary lymph nodes. No other significant abnormalities are identified. There has been no significant change since the prior study. BI/SCREENING MAMM (CAD), BILAT IMPRESSION: Stable bilateral screening mammogram. Yearly follow-up mammogram recommended. (A) ASSESSMENT CATEGORY: BIRADS Category 2: Benign. A letter regarding these results will be sent to the patient by the facility within 30 days. Approximately 10% of breast cancers are not detected by mammography. A normal mammogram should not delay biopsy of a clinically suspicious abnormality. [id number] Electronically Signed: Ismael Granger MD at 15:24 EDT ,
== END | disposition home or self-care (01) ==
LOC: OPBI 07:59
PROVIDERS: PCP Family Medicine; Referring Provider Family Medicine; Visit Provider Family Medicine
DX: Z12.31 Encounter for screening mammogram for malignant neoplasm of breast (principal)
CPT/HCPCS: 77067

== ENCOUNTER → 2023-09-26 | Outpatient (CLI) | payer OTHER, SELFPAY ==
[2023-09-26 12:19] LABS: Absolute Lymphocyte Count 1.71 X10^3/uL (0.83-4.51); Absolute Neutrophil Count 4.6 X10^3/uL (2.0-7.7); Basophil# 0.04 X10^3/uL; Basophil% 0.6 % (0-1); Eosinophil# 0.14 X10^3/uL; Eosinophils% 2.1 % (0-5); Hemoglobin 13.8 g/dL (12.0-15.0); Lymphocyte # 1.71 X10^3/ul (0.83-4.51); Lymphocyte % 25.1 % (19-41); Mean Corp Hgb Conc 32.1 g/dL (32-36); Mean Corpuscular Hgb 28.9 pg (27.0-32.0); Mean Corpuscular Volume 90.1 fL (81-99); Monocyte# 0.32 X10^3/uL; Monocyte% 4.7 % (0-10); NRBC Flagged by Analyzer 0 % (0-5); Neutrophil # 4.55 X10^3/uL (2.7-7.7); Neutrophil % 66.9 % (47-70); Platelet Count 294 K/mm3 (150-450); RBC Distribution Width CV 13.8 % (11.6-14.6); RBC Distribution Width SD 45.7 fl (35.1-43.9); Red Blood Count 4.77 M/mm3 (4.2-5.4); White Blood Count 6.8 K/mm3 (4.4-11.0)
[2023-09-26 13:06] LABS: ALB/GLOB Ratio 0.7 RATIO (0.9-2.4); AST(SGOT) 14 U/L (15-37); Alanine Aminotransfer ALT/SGPT 21 U/L (13-56); Albumin, Serum 3.1 g/dL (3.2-5.0); Alkaline Phosphatase 62 U/L (45-117); Anion Gap 7 (5-15); BUN 14 mg/dL (7-18); BUN/Creat Ratio 16.5 RATIO (10-20); Calcium,Total 8.8 mg/dL (8.5-10.1); Chloride 105 mmol/L (98-107); Cholesterol 171 mg/dL (200); Creatinine, Serum 0.85 mg/dL (0.55-1.02); EST Glomerular Filtration Rate 74 mL/min (>60); Est Glom Filt Rate - Afr Amer 90 mL/min (>60); Globulin 4.3 g/dL (2.2-4.2); Glucose 76 mg/dL (74-106); High Density Lipoprotein 56 mg/dL; Potassium 3.6 mmol/L (3.5-5.1); Protein, Total 7.4 g/dL (6.4-8.2); Sodium Level 139 mmol/L (136-145); Triglycerides 81 mg/dL; Very Low Density Lipoprotein 16 mg/dL (5-40)
== END | disposition home or self-care (01) ==
LOC: MFPLAB 09:23
PROVIDERS: PCP Family Medicine; Visit Provider Family Medicine
DX: G43.809 Other migraine, not intractable, without status migrainosus (principal); E66.01 Morbid (severe) obesity due to excess calories; Z68.42 Body mass index [BMI] 45.0-49.9, adult
CPT/HCPCS: 36415; 80053; 80061; 83036; 85025

== ENCOUNTER → 2024-10-14 | Outpatient (CLI) | payer OTHER, SELFPAY ==
[2024-10-14 17:34] LABS: Absolute Lymphocyte Count 2.13 X10^3/uL (0.83-4.51); Absolute Neutrophil Count 5.2 X10^3/uL (2.0-7.7); Basophil# 0.04 X10^3/uL; Basophil% 0.5 % (0-1); Eosinophil# 0.15 X10^3/uL; Eosinophils% 1.9 % (0-5); Hematocrit 43.6 % (37-47); Hemoglobin 14.3 g/dL (12.0-15.0); Lymphocyte # 2.13 X10^3/ul (0.83-4.51); Lymphocyte % 26.6 % (19-41); Mean Corp Hgb Conc 32.8 g/dL (32-36); Mean Corpuscular Hgb 28.7 pg (27.0-32.0); Mean Corpuscular Volume 87.6 fL (81-99); Monocyte# 0.45 X10^3/uL; Monocyte% 5.6 % (0-10); NRBC Flagged by Analyzer 0 % (0-5); Neutrophil # 5.21 X10^3/uL (2.7-7.7); Platelet Count 315 K/mm3 (150-450); RBC Distribution Width CV 13.5 % (11.6-14.6); RBC Distribution Width SD 43.4 fl (35.1-43.9); Red Blood Count 4.98 M/mm3 (4.2-5.4)
[2024-10-14 18:45] LABS: Hemoglobin A1c 5.2 % (<=5.6)
[2024-10-14 19:22] LABS: ALB/GLOB Ratio 1.1 RATIO (0.9-2.4); AST(SGOT) 18 U/L (<=31); Alanine Aminotransfer ALT/SGPT 13 U/L (<=34); Alkaline Phosphatase 73 U/L (35-104); Anion Gap 11 (5-15); BUN 23 mg/dL (4-19); BUN/Creat Ratio 26.9 RATIO (10-20); Calcium 9.8 mg/dL (7.6-11.0); Carbon Dioxide 24.6 mmol/L (22.0-29.0); Chloride 100 mmol/L (96-108); Creatinine, Serum 0.85 mg/dL (0.70-1.20); EST Glomerular Filtration Rate 81 (>60); Globulin 3.6 g/dL (2.2-4.2); Glucose 83 mg/dL (70-99); Potassium 3.5 mmol/L (3.3-5.1); Protein, Total 7.6 g/dL (5.9-8.4); Sodium Level 136 mmol/L (133-145); Total Bilirubin 0.29 mg/dL (0.00-1.30)
== END | disposition home or self-care (01) ==
LOC: MFPLAB 16:48
PROVIDERS: PCP Family Medicine; Referring Provider Family Medicine; Visit Provider Family Medicine
DX: E88.1 Lipodystrophy, not elsewhere classified (principal); E66.813 Obesity, class 3
CPT/HCPCS: 36415; 80053; 83036; 84443; 85025

== ENCOUNTER → 2024-12-01 | Outpatient (CLI) | payer OTHER, SELFPAY ==
--- NOTE | 2024-12-01 10:52 | BI_ITS ---
EXAM: SCRN MAMM (CAD)W/KELY BILAT 12/01/2024 CLINICAL HISTORY: F, Age 54 y/o , BREAST CANCER SCREEN TECHNIQUE: Bilateral screening digital breast tomosynthesis with 2D and 3D images. Computer aided detection. COMPARISON: Prior exam(s) dated 05/30/2023, 04/12/2022. FINDINGS: TISSUE DENSITY: The breast tissue is almost entirely fatty. Bilateral Breast Mammographic Findings: No significant masses, calcifications or other abnormalities are identified. BI/SCRN MAMM (CAD)W/KELY BILAT IMPRESSION: Right Breast: BIRADS 1 NEGATIVE. Left Breast: BIRADS 1 NEGATIVE. OVERALL FINAL ASSESSMENT: BIRADS 1 NEGATIVE. RECOMMENDATION: Routine annual follow-up in 1 Year A letter with findings and recommendations will be mailed to the patient. Reading Location: [facility]
== END | disposition home or self-care (01) ==
LOC: OPBI 10:51
PROVIDERS: PCP Family Medicine; Referring Provider Family Medicine; Visit Provider Family Medicine
DX: Z12.31 Encounter for screening mammogram for malignant neoplasm of breast (principal)
CPT/HCPCS: 77063; 77067